=== PATIENT | male | born 1955 | race Caucasian/White ===

== ENCOUNTER 2025-04-05 23:47 | Inpatient (IN) | payer OTHER, MEDICARE ==
[~2025-04-05] VITALS: Ht 187.9 cm; Wt 95.3 kg
[~2025-04-05 23:47] MED LIST: NKHM
[2025-04-06] VITALS: BP 148/88
[2025-04-06] MEDS ORDERED: ACETAMINOPHEN 100 ML IV ONE ×2 (00:15→00:51)
[2025-04-06] MEDS ORDERED: SODIUM CHLORIDE 0.9% 1,000 ML IV SCH (00:15)
[2025-04-06 00:34] LABS: HEMATOCRIT 44.1 % (42.0-52.0); MEAN CELL VOLUME 91.7 fl (80.0-94.0); MEAN CORPUSCULAR HGB 31.2 pg (27.0-31.0); MEAN PLATELET VOLUME 10.3 fl (9.6-12.3); PLATELET COUNT AUTOMATED 86 10*3/uL (130-400); RED BLOOD COUNT 4.81 10*6/uL (4.50-5.90); RED CELL DISTRI WIDTH 12.3 % (0-14.5); WHITE BLOOD COUNT 3.2 10*3/uL (4.8-10.8)
[2025-04-06 00:35] LABS: MANUAL DIFF REFLEX YES
[2025-04-06 00:52] LABS: ALKALINE PHOSPHATASE 57 U/L (46-116); BUN 20 mg/dl (9-23); CHLORIDE 99 mmol/L (98-107); CPK 443 U/L (34-171); LIPASE 25 U/L (12-53); POTASSIUM 3.5 mmol/L (3.4-5.1); SGPT/ALT 35 U/L (5-49); TOTAL PROTEIN 6.9 gm/dL (6.0-8.0)
[2025-04-06 00:56] LABS: TOTAL CELLS COUNTED 100 #CELLS
[2025-04-06 00:57] LABS: PLATELET SUFFICIENCY LOW (NORMAL)
[2025-04-06 01:07] LABS: BILIRUBIN Negative (Negative); BLOOD 1+ (Negative); CLARITY Clear (Clear); COLOR Yellow (Yellow); GLUCOSE Negative (Negative); KETONE Trace (Negative); LEUKO ESTERASE Negative (Negative); NITRITE Negative (Negative); PH 5.5 (4.5-8.0); UROBILINOGEN 0.2 E.U./dl (0.0-1.0)
[2025-04-06 01:13] LABS: BACTERIA 1+; RBC 0-2 rbc/hpf (0-2); WBC 0-2 wbc/hpf (0-5)
[2025-04-06 03:52] VITALS: BP 104/55
[2025-04-06] MEDS ORDERED: BISACODYL 10 MG SUPP R PRN (05:35)
[2025-04-06] MEDS ORDERED: ACETAMINOPHEN 325 MG TAB PO PRN (05:35)
[2025-04-06] MEDS ORDERED: BISACODYL 5 MG TAB PO PRN (05:35)
[2025-04-06] MEDS ORDERED: ACETAMINOPHEN 650 MG SUPP R PRN (05:35)
[2025-04-06] MEDS ORDERED: SODIUM CHLORIDE 0.9% 1,000 ML IV ONE (05:50)
[2025-04-06 06:12] VITALS: BP 129/72
[2025-04-06 06:12] LABS: HEMATOCRIT 45.5 % (42.0-52.0); MEAN CELL VOLUME 92.9 fl (80.0-94.0); MEAN CORPUSCULAR HGB CONC 33.4 g/dl (33.0-37.0); MEAN PLATELET VOLUME 10.3 fl (9.6-12.3); PLATELET COUNT AUTOMATED 75 10*3/uL (130-400); RED CELL DISTRI WIDTH 12.5 % (0-14.5); WHITE BLOOD COUNT 3.6 10*3/uL (4.8-10.8)
[2025-04-06 07:13] LABS: ALKALINE PHOSPHATASE 56 U/L (46-116); BUN 18 mg/dl (9-23); CHLORIDE 100 mmol/L (98-107); CHOLESTEROL 109 mg/dL (<200); FREE T4 0.99 ng/dl (0.89-1.76); LDL CHOLESTEROL 56 mg/dL (9-159); SGPT/ALT 38 U/L (5-49); TOTAL PROTEIN 6.8 gm/dL (6.0-8.0); TRIGLYCERIDES 89 mg/dl (<150)
[2025-04-06 07:22] LABS: MANUAL DIFF REFLEX YES
[2025-04-06 07:26] LABS: PLATELET SUFFICIENCY LOW (NORMAL); TOTAL CELLS COUNTED 100 #CELLS
[2025-04-06 07:27] LABS: ROULEAUX SLIGHT
[2025-04-06 08:00] LABS: VITAMIN D, 25-HYDROXY 48.9 ng/mL (30-100)
[2025-04-06] MEDS ORDERED: Piperacillin Sodium/Tazobact 50 ML IV SCH (08:00)
[2025-04-06 08:10] VITALS: BP 108/72
[2025-04-06] MEDS ORDERED: cefTRIAXone Sodium 10 ML IV SCH (09:30)
[2025-04-06] MEDS ORDERED: Enoxaparin Sodium 40 MG/0.4 ML SYR SC SCH (10:00)
[2025-04-06] MEDS ORDERED: metroNIDAZOLE 100 ML IV SCH (10:00)
[2025-04-06 11:40] VITALS: BP 125/63
[2025-04-06 15:56] VITALS: BP 126/84
[2025-04-07 01:31] VITALS: BP 153/66
[2025-04-07 05:35] VITALS: BP 123/64
[2025-04-07 05:38] LABS: ALKALINE PHOSPHATASE 48 U/L (46-116); BUN 15 mg/dl (9-23); CHLORIDE 102 mmol/L (98-107); POTASSIUM 3.6 mmol/L (3.4-5.1); SGPT/ALT 48 U/L (5-49); TOTAL PROTEIN 5.9 gm/dL (6.0-8.0)
[2025-04-07 06:13] LABS: HEMATOCRIT 41.8 % (42.0-52.0); MEAN CELL VOLUME 92.3 fl (80.0-94.0); MEAN CORPUSCULAR HGB 31.6 pg (27.0-31.0); MEAN CORPUSCULAR HGB CONC 34.2 g/dl (33.0-37.0); RED BLOOD COUNT 4.53 10*6/uL (4.50-5.90); RED CELL DISTRI WIDTH 12.5 % (0-14.5); WHITE BLOOD COUNT 2.5 10*3/uL (4.8-10.8)
[2025-04-07 07:00] LABS: MANUAL DIFF REFLEX YES; PLATELET COUNT AUTOMATED 43 10*3/uL (130-400)
[2025-04-07 07:05] LABS: PLATELET SUFFICIENCY LOW (NORMAL); TOTAL CELLS COUNTED 100 #CELLS
[2025-04-07 07:06] LABS: ROULEAUX SLIGHT
[2025-04-07] MEDS ORDERED: Ondansetron Hydrochloride 4 MG/2 ML VIAL IV PRN (09:50)
[2025-04-07] MEDS ORDERED: Ondansetron Hydrochloride 4 MG/2 ML VIAL IV ONE (09:50)
[2025-04-07 10:25] VITALS: BP 148/67
[2025-04-07 12:00] VITALS: BP 148/67
[2025-04-07 16:00] VITALS: BP 138/75
[2025-04-07 20:00] VITALS: BP 158/77
[2025-04-08] VITALS: BP 139/71
[2025-04-08 06:56] LABS: ALKALINE PHOSPHATASE 51 U/L (46-116); BUN 19 mg/dl (9-23); CHLORIDE 98 mmol/L (98-107); HEMATOCRIT 44.1 % (42.0-52.0); MEAN CELL VOLUME 89.6 fl (80.0-94.0); MEAN CORPUSCULAR HGB 30.9 pg (27.0-31.0); MEAN CORPUSCULAR HGB CONC 34.5 g/dl (33.0-37.0); MEAN PLATELET VOLUME 12.3 fl (9.6-12.3); PLATELET COUNT AUTOMATED 32 10*3/uL (130-400); POTASSIUM 3.4 mmol/L (3.4-5.1); RED BLOOD COUNT 4.92 10*6/uL (4.50-5.90); RED CELL DISTRI WIDTH 12.6 % (0-14.5); SGPT/ALT 64 U/L (5-49); TOTAL PROTEIN 6.5 gm/dL (6.0-8.0); WHITE BLOOD COUNT 2.2 10*3/uL (4.8-10.8)
[2025-04-08 06:57] LABS: MANUAL DIFF REFLEX YES
[2025-04-08 08:00] VITALS: BP 149/77
[2025-04-08 08:10] LABS: ATYPICAL LYMPHS 7 % (0-0); PLATELET SUFFICIENCY LOW (NORMAL); POLYCHROMASIA SLIGHT; ROULEAUX SLIGHT; TOTAL CELLS COUNTED 100 #CELLS
[2025-04-08] MEDS ORDERED: Atropine Sulfate/Diphenoxyla 1 TAB TAB PO ONE (11:45)
[2025-04-08] MEDS ORDERED: Atropine Sulfate/Diphenoxyla 1 TAB TAB PO PRN (11:45)
[2025-04-08 12:00] VITALS: BP 109/58
[2025-04-08 12:07] LABS: HBsAG SCREEN Negative (Negative); HCV Ab Non Reactive (Non Reactive); HEP B CORE Ab, IgM Negative (Negative)
[2025-04-08 16:00] VITALS: BP 125/73
[2025-04-08] MEDS ORDERED: Atropine Sulfate/Diphenoxyla 1 TAB TAB PO SCH (18:30)
[2025-04-08 20:00] VITALS: BP 127/71
[2025-04-08] MEDS ORDERED: Doxycycline Hyclate 100 MG CAPSULE PO SCH (22:00)
[2025-04-08 23:41] LABS: URINE AMPHETAMINES Negative (1000ng/ml); URINE BARBITURATES Negative (200ng/ml); URINE BENZODIAZEPINES Negative (200ng/ml); URINE CANNABINOIDS (THC) Negative (50ng/ml); URINE COCAINE Negative (300ng/ml); URINE METHADONE Negative (300ng/ml); URINE OPIATES Negative (300ng/ml); URINE PHENCYCLIDINE Negative (25ng/ml)
[2025-04-09] VITALS: BP 120/61
[2025-04-09 07:18] LABS: ALKALINE PHOSPHATASE 47 U/L (46-116); BUN 19 mg/dl (9-23); CHLORIDE 99 mmol/L (98-107); POTASSIUM 3.6 mmol/L (3.4-5.1); SGPT/ALT 58 U/L (5-49); TOTAL PROTEIN 5.8 gm/dL (6.0-8.0)
[2025-04-09 07:38] LABS: HEMATOCRIT 42.8 % (42.0-52.0); MEAN CELL VOLUME 89.4 fl (80.0-94.0); MEAN CORPUSCULAR HGB 31.1 pg (27.0-31.0); MEAN CORPUSCULAR HGB CONC 34.8 g/dl (33.0-37.0); MEAN PLATELET VOLUME 14.2 fl (9.6-12.3); RED BLOOD COUNT 4.79 10*6/uL (4.50-5.90); RED CELL DISTRI WIDTH 12.8 % (0-14.5); WHITE BLOOD COUNT 3.3 10*3/uL (4.8-10.8)
[2025-04-09 07:47] LABS: MANUAL DIFF REFLEX YES; PLATELET COUNT AUTOMATED 23 10*3/uL (130-400)
[2025-04-09 08:00] VITALS: BP 137/71
[2025-04-09 08:53] LABS: ATYPICAL LYMPHS 5 % (0-0); TOTAL CELLS COUNTED 100 #CELLS
[2025-04-09 08:54] LABS: BURR CELLS FEW
[2025-04-09 08:55] LABS: PLATELET SUFFICIENCY LOW (NORMAL)
[2025-04-09 12:00] VITALS: BP 141/57
[2025-04-09 16:00] VITALS: BP 111/66
[2025-04-09 20:00] VITALS: BP 110/62
[2025-04-09] MEDS ORDERED: methylPREDNISolone sod succ 125 MG VIAL IV SCH (22:00)
[2025-04-10] VITALS: BP 132/63
[2025-04-10 06:51] LABS: HEMATOCRIT 46.8 % (42.0-52.0); MEAN CELL VOLUME 90.5 fl (80.0-94.0); MEAN CORPUSCULAR HGB 30.8 pg (27.0-31.0); MEAN PLATELET VOLUME 13.6 fl (9.6-12.3); RED BLOOD COUNT 5.17 10*6/uL (4.50-5.90); RED CELL DISTRI WIDTH 12.9 % (0-14.5); WHITE BLOOD COUNT 4.7 10*3/uL (4.8-10.8)
[2025-04-10 07:05] LABS: BUN 19 mg/dl (9-23); CHLORIDE 100 mmol/L (98-107)
[2025-04-10 07:13] LABS: MANUAL DIFF REFLEX YES; PLATELET COUNT AUTOMATED 26 10*3/uL (130-400)
[2025-04-10 08:00] VITALS: BP 114/72
[2025-04-10 09:43] LABS: ATYPICAL LYMPHS 11 % (0-0); TOTAL CELLS COUNTED 100 #CELLS
[2025-04-10 09:44] LABS: BURR CELLS FEW; PLATELET SUFFICIENCY LOW (NORMAL)
[2025-04-10] MEDS ORDERED: CYANOCOBALAMIN 1,000 MCG/ML VIAL IM SCH (10:00)
[2025-04-10 12:00] VITALS: BP 137/81
[2025-04-10 16:00] VITALS: BP 143/92
[2025-04-10 17:07] LABS: A/G RATIO 0.9 (0.7-1.7); ALBUMIN 2.5 g/dL (2.9-4.4); ALPHA-1-GLOBULIN 0.4 g/dL (0.0-0.4); ALPHA-2-GLOBULIN 0.8 g/dL (0.4-1.0); BETA GLOBULIN 0.6 g/dL (0.7-1.3); GAMMA GLOBULIN 1.1 g/dL (0.4-1.8); GLOBULIN, TOTAL 2.9 g/dL (2.2-3.9); P E INTERPRETATION Comment: (.)
[2025-04-10 20:00] VITALS: BP 126/73
[2025-04-10 23:46] VITALS: BP 149/90
[2025-04-11 06:56] LABS: HEMATOCRIT 43.6 % (42.0-52.0); MEAN CELL VOLUME 88.3 fl (80.0-94.0); MEAN CORPUSCULAR HGB 30.6 pg (27.0-31.0); MEAN CORPUSCULAR HGB CONC 34.6 g/dl (33.0-37.0); MEAN PLATELET VOLUME 12.3 fl (9.6-12.3); RED BLOOD COUNT 4.94 10*6/uL (4.50-5.90); WHITE BLOOD COUNT 9.9 10*3/uL (4.8-10.8)
[2025-04-11 06:57] LABS: MANUAL DIFF REFLEX YES; PLATELET COUNT AUTOMATED 51 10*3/uL (130-400)
[2025-04-11 07:20] LABS: ATYPICAL LYMPHS 13 % (0-0); TOTAL CELLS COUNTED 100 #CELLS
[2025-04-11 07:21] LABS: BURR CELLS FEW; OVALOCYTES FEW; PLATELET SUFFICIENCY LOW (NORMAL); POLYCHROMASIA SLIGHT
[2025-04-11 07:27] LABS: ALKALINE PHOSPHATASE 58 U/L (46-116); BUN 19 mg/dl (9-23); CHLORIDE 102 mmol/L (98-107); POTASSIUM 3.8 mmol/L (3.4-5.1); SGPT/ALT 64 U/L (5-49); TOTAL PROTEIN 6.1 gm/dL (6.0-8.0)
[2025-04-11 08:00] VITALS: BP 140/66
[2025-04-11 12:00] VITALS: BP 155/77
[2025-04-11] MEDS ORDERED: DOXYCYCLINE MO100 MG PO (12:15)
[2025-04-11] MEDS ORDERED: PREDNISONE50 MG PO (12:15)
[2025-04-11] MEDS ORDERED: EPIPEN 2-P0.3 MG/0.3 IJ (12:15)
[2025-04-11] MEDS ORDERED: CIPRO500 MG PO (15:59)
[2025-04-11] MEDS ORDERED: METRONIDAZOLE500 M1 PO (15:59)
[2025-04-12 17:07] LABS: LOG10 EBV DNA QN, PCR 3.342 (.)
[2025-04-12 19:07] LABS: HISTOPLASMA MYCLIAL AB Negative (Neg:<1:2); HISTOPLASMA YEAST AB Negative (Neg:<1:2)
== END 2025-04-11 12:48 | disposition home or self-care (01) | DRG 872 ==
LOC: ED 23:47 → EDHOLD 04-06 05:15 → 5E 04-06 05:15 → EDHOLD 04-06 05:15 → 5E 04-07 08:40
PROVIDERS: Emergency Medicine; Internal Medicine; Physician Assistant; Student in an Organized Health Care Education/Training Program; ADMIT Internal Medicine; ATTEND Internal Medicine
DX: A41.9 Sepsis, unspecified organism (principal); E87.1 Hypo-osmolality and hyponatremia; E44.0 Moderate protein-calorie malnutrition; N17.9 Acute kidney failure, unspecified; M62.82 Rhabdomyolysis; K52.9 Noninfective gastroenteritis and colitis, unspecified; N18.31 Chronic kidney disease, stage 3a; K57.30 Diverticulosis of large intestine without perforation or abscess without bleeding; R73.9 Hyperglycemia, unspecified; R74.01 Elevation of levels of liver transaminase levels; D69.6 Thrombocytopenia, unspecified; R59.1 Generalized enlarged lymph nodes; R16.2 Hepatomegaly with splenomegaly, not elsewhere classified; K76.0 Fatty (change of) liver, not elsewhere classified; Z90.49 Acquired absence of other specified parts of digestive tract; Z82.49 Family history of ischemic heart disease and other diseases of the circulatory system; Z83.3 Family history of diabetes mellitus; Z68.27 Body mass index [BMI] 27.0-27.9, adult

== ENCOUNTER 2025-06-27 16:36 | Emergency (ER) | payer OTHER, MEDICARE ==
[~2025-06-27] VITALS: Ht 190.5 cm
[~2025-06-27 16:36] MED LIST changes: +CIPRO500 MG PO; +DOXYCYCLINE MO100 MG PO; +EPIPEN 2-P0.3 MG/0.3 IJ; +METRONIDAZOLE500 M1 PO; +PREDNISONE50 MG PO
[2025-06-27] MEDS ORDERED: SODIUM CHLORIDE 0.9% 1,000 ML IV ONE (17:40)
[2025-06-27 17:50] LABS: BASO # 0.0 10*3/uL (0.0-0.1); BASO % 0.3 % (0.0-1.0); EOS # 0.1 10*3/uL (0.0-0.4); EOS % 0.6 % (1.0-4.0); MEAN CELL VOLUME 89.7 fl (80.0-94.0); MEAN CORPUSCULAR HGB 30.8 pg (27.0-31.0); MEAN PLATELET VOLUME 9.3 fl (9.6-12.3); MONO # 0.5 10*3/uL (0.1-1.0); MONO % 6.6 % (3.0-9.0); NEUT # 5.1 10*3/uL (2.3-7.9); NEUT % 66.0 % (47.0-73.0); NUCLEATED RED BLOOD CELL 0.0 % (0.0-0.0); NUCLEATED RED BLOOD CELL 0.0 10*3/uL (0.0-0.0); PLATELET COUNT AUTOMATED 252 10*3/uL (130-400); RED CELL DISTRI WIDTH 13.8 % (0-14.5)
[2025-06-27 18:04] LABS: ACT PARTIAL THROMBO TIME 27.7 SECONDS (20.0-32.1)
[2025-06-27 18:11] LABS: BUN 22 mg/dl (9-23); SGPT/ALT 22 U/L (5-49)
[2025-06-27 18:45] LABS: BILIRUBIN Negative (Negative); BLOOD Negative (Negative); CLARITY Clear (Clear); COLOR Yellow (Yellow); KETONE Trace (Negative); LEUKO ESTERASE Negative (Negative); NITRITE Negative (Negative); PH 5.5 (4.5-8.0); SPECIFIC GRAVITY 1.020 (1.001-1.030); UROBILINOGEN 0.2 E.U./dl (0.0-1.0)
[2025-06-27 18:54] LABS: WBC 0-2 wbc/hpf (0-5)
== END 2025-06-27 19:03 | disposition short-term general hospital (02) ==
LOC: ED 16:36
PROVIDERS: Nurse Practitioner Family
DX: S06.5XAA Traumatic subdural hemorrhage with loss of consciousness status unknown, initial encounter (principal); I21.4 Non-ST elevation (NSTEMI) myocardial infarction; Z79.899 Other long term (current) drug therapy; Z90.49 Acquired absence of other specified parts of digestive tract; Z98.890 Other specified postprocedural states; W18.09XA Striking against other object with subsequent fall, initial encounter; Y93.89 Activity, other specified; Y92.89 Other specified places as the place of occurrence of the external cause; Y99.9 Unspecified external cause status